=== PATIENT | female | born 1955 | race Caucasian/White ===

== ENCOUNTER 2017-12-18 13:09 | Emergency (ER) | payer OTHER | END 2017-12-18 15:37 | disposition home or self-care (01) | LOC: M ED 13:09 | DX: S30.0XXA Contusion of lower back and pelvis, initial encounter (principal); S50.01XA Contusion of right elbow, initial encounter; S40.011A Contusion of right shoulder, initial encounter; W00.0XXA Fall on same level due to ice and snow, initial encounter; Y92.511 Restaurant or cafe as the place of occurrence of the external cause; I10 Essential (primary) hypertension; J44.9 Chronic obstructive pulmonary disease, unspecified; E11.9 Type 2 diabetes mellitus without complications; R56.9 Unspecified convulsions; B19.20 Unspecified viral hepatitis C without hepatic coma; Z79.899 Other long term (current) drug therapy; Z79.82 Long term (current) use of aspirin; Z79.84 Long term (current) use of oral hypoglycemic drugs; Z88.0 Allergy status to penicillin; Z88.1 Allergy status to other antibiotic agents; Z88.2 Allergy status to sulfonamides; Z88.5 Allergy status to narcotic agent; Z91.040 Latex allergy status | CPT/HCPCS: 72110 ==

== ENCOUNTER → 2018-06-07 | Outpatient (CLI) | payer OTHER | LOC: M WHC 07:58 | DX: Z12.31 Encounter for screening mammogram for malignant neoplasm of breast (principal) | CPT/HCPCS: 77067 ==

== ENCOUNTER 2018-08-22 07:37 | Day surgery (SDC) | payer OTHER ==
[2018-08-22] MEDS: NS 1,000 ML IV ×2 (07:00→08:34)
[2018-08-22] MEDS ORDERED: PROPOFOL 200 MG/20 ML VIAL As Ordered ×3 (09:12→09:29)
[2018-08-22] MEDS ORDERED: LIDOCAINE 2% INJ 100 MG/5 ML SDV (FOR ANES.) As Ordered (09:12)
== END 2018-08-22 10:20 | disposition home or self-care (01) ==
LOC: M OPP 07:37
DX: Z12.11 Encounter for screening for malignant neoplasm of colon (principal); Z80.0 Family history of malignant neoplasm of digestive organs; Z86.010 Personal history of colon polyps; K62.1 Rectal polyp; D12.2 Benign neoplasm of ascending colon; K57.30 Diverticulosis of large intestine without perforation or abscess without bleeding; E78.5 Hyperlipidemia, unspecified; E11.9 Type 2 diabetes mellitus without complications; K59.00 Constipation, unspecified; K21.9 Gastro-esophageal reflux disease without esophagitis; R12 Heartburn; Z86.19 Personal history of other infectious and parasitic diseases; M19.90 Unspecified osteoarthritis, unspecified site; M54.5 Low back pain; F41.9 Anxiety disorder, unspecified; R51 Headache; R56.9 Unspecified convulsions; J45.909 Unspecified asthma, uncomplicated; J44.9 Chronic obstructive pulmonary disease, unspecified; Z91.030 Bee allergy status; Z88.5 Allergy status to narcotic agent; Z88.1 Allergy status to other antibiotic agents; Z91.040 Latex allergy status; Z88.0 Allergy status to penicillin; Z88.2 Allergy status to sulfonamides; Z79.82 Long term (current) use of aspirin; Z79.899 Other long term (current) drug therapy; Z79.84 Long term (current) use of oral hypoglycemic drugs; Z80.3 Family history of malignant neoplasm of breast
CPT/HCPCS: 45385

== ENCOUNTER → 2019-07-13 | Outpatient (CLI) | payer MEDICARE ==
[~2019-07-13] MED LIST: ALOG25TA PO; ASPI81TA83 OR; ASPI81TA85 PO; BUSP10TA2 OR; CRES10TA32 OR; DILA100C PO; GLIP10TA18 PO; GLUC1000 OR; INVO300T PO; KEPPRA PO; LIPI20TA PO; LORA-243 PO; METF10004 PO; NAPR-837 PO; NEXI1CAP3 OR; OMEP20CA4 PO; QVAR80AE10 IN; SING10TA31 OR; SYMB80AE INH; TOPI100T OR; TOPI50TA OR; TRAM50TA2 OR; ZOLO100T OR; ZOLO100T PO; ZOLOFT PO; [UNRECOGNIZED DRUG - CODE] PR
--- NOTE | 2019-07-13 15:31 | REPMRS ---
Patient History The patient states she has not had a clinical breast exam in over a year. Patient is postmenopausal. Family history of colorectal cancer at age 50 or over in paternal aunt, prostate cancer at age 50 or over in father. No Hormone Replacement Therapy Digital Woman Screen Mammo: July 13, 2019 - Exam #: [id number] Bilateral CC and MLO view(s) were taken. Technologist: Monse Balderas, Technologist Prior study comparison: June 07, 2018, bilateral digital woman screen mammo performed at [facility]. December 24, 2011, bilateral digital woman screen mammo performed at [facility]. November 19, 2010, bilateral screening mammogram performed at [facility]. FINDINGS: There are scattered fibroglandular densities. There has been no change in the appearance of the mammogram from the prior studies. There is a mild amount of scattered fibroglandular density which is fairly symmetric. There is no interval development of dominant mass, architectural distortion, or grouped microcalcification suggestive of malignancy. 3-D tomosynthesis shows no additional findings. Assessment: BI-RADS/ACR category 1 mammogram. Negative Mammogram. Recommendation Routine screening mammogram of both breasts in 1 year (for women over age 40). This patient's Lifetime Breast Cancer Risk is estimated at 5.9 %. This mammogram was interpreted with the aid of an FDA-approved computer-aided dectection system. Electronically Signed By: Scott Vargas MD 07/13/19 0452
== END ==
LOC: M WHC 12:23
PROVIDERS: ATTEND Family Medicine
DX: Z12.31 Encounter for screening mammogram for malignant neoplasm of breast (principal); Z78.0 Asymptomatic menopausal state; Z80.3 Family history of malignant neoplasm of breast

== ENCOUNTER → 2021-06-27 | Outpatient (CLI) | payer MEDICARE ==
[~2021-06-27] MED LIST changes: -ASPI81TA85 PO; +ASPI81TA86 PO; +OMEP1CAP73 PO; -OMEP20CA4 PO
--- NOTE | 2021-06-27 16:35 | DEXAMM ---
INDICATION: Z13.820 SCR FOR OSTEOPOROSIS. Status post lumbar spine fusion surgery. COMPARISON: Comparison study July 27, 2006.. TECHNIQUE: Bone density was measured using dual-energy x-ray absorptionmetry (DEXA). FINDINGS: LT FEMUR, TOTAL BMD 1.036 g/cm2 Young Adult T-Score 0.2 Age Matched Z-Score 21.6. LT NECK BMD 0.903 g/cm2 Young Adult T-Score -1.0 Age Matched Z-Score 0.6. RT FEMUR, TOTAL BMD 1.013 g/cm2 Young Adult T-Score is 0.0 Age Matched Z-Score 01.4. RT NECK BMD 0.809 g/cm2 Young Adult T-Score -1.6 Age Matched Z-Score 6-0.1. IMPRESSION: There is low bone density of the left hip. There is low bone density of the right hip. The density of the left hip has decreased 11.3% since initial exam on July 27, 2006. The density of the right hip has decreased 17.1% since the initial exam on July 27, 2006. FOLLOW-UP: Recommendation for the next bone density exam: 2 years. <Electronically signed by Scott Vargas > 06/27/21 [id number]
--- NOTE | 2021-06-27 16:45 | REPMRS ---
Patient History The patient states she has not had a clinical breast exam in over a year. Family history of colorectal cancer at age 50 or over in paternal aunt, prostate cancer at age 50 or over in father. No Hormone Replacement Therapy Patient states no breast complaints today. Patient has signed MRS History Sheet. Digital Woman Screen Mammo: June 27, 2021 - Exam #: [id number] Bilateral CC and MLO view(s) were taken. Technologist: Coco Hills, Technologist Prior study comparison: July 13, 2019, bilateral digital woman screen mammo performed at [facility]. June 07, 2018, bilateral digital woman screen mammo performed at [facility]. FINDINGS: There are scattered fibroglandular densities. Screening. Digital screening (2D) mammography was performed bilaterally in the CC and MLO projections. Additionally, breast tomosynthesis (3D mammography) was performed bilaterally in the CC and MLO projections. Todays exam was compared to the prior exam/exams. By history, the patient has no complaints of a palpable breast abnormality or other significant breast complaints. The breasts are unchanged in size and shape. There are no everett-soft tissue densities or spiculated masses. There is no internal architectural distortion. There are no suspicious everett-calcific clusters. Skin thickening or nipple retraction is not present. IMPRESSION: BI-RADS Category 2- Benign Findings. There is no evidence of malignant alteration of the breasts. Followup examination recommended in one year. The Volpara volumetric breast density category is B, there are scattered areas of fibroglandular densities. This mammogram was read with the assistance of [employer],an FDA approved computer aided detection system for mammography. The lifetime Tyrer-Cuzick score is 5.3 % Negative x-ray reports should not delay surgical consultation if a dominant or clinically suspicious mass is present. Not all breast cancers can be identified by mammography. Therefore, we recommend that you continue to perform regular breast self-examination and physical examination and then promptly contact your physician of any concerns or changes. Adenosis and dense breasts may obscure an underlying neoplasm. Assessment: BI-RADS/ACR category 2 mammogram. Benign Findings. Recommendation Routine screening mammogram of both breasts in 1 year. Electronically Signed By: Martín Sarmiento DO 06/27/21 [id number]
== END ==
LOC: M WHC 13:22
PROVIDERS: ATTEND Family Medicine
DX: Z12.31 Encounter for screening mammogram for malignant neoplasm of breast (principal); Z13.820 Encounter for screening for osteoporosis; R92.2 Inconclusive mammogram; M43.26 Fusion of spine, lumbar region; M85.88 Other specified disorders of bone density and structure, other site

== ENCOUNTER → 2022-01-02 | Outpatient (CLI) | payer MEDICARE ==
[~2022-01-02] MED LIST changes: +ATOR40TA75 PO; +ECOT81TA5 PO; +FAMO40TA3 PO; +OMEP-173 PO; +PIOG1TAB36 PO; +PROAAER10 INH; +TRUL0.5I SC
== END ==
LOC: M LABSMTC 08:54
PROVIDERS: ATTEND Anesthesiology
DX: Z01.812 Encounter for preprocedural laboratory examination (principal); Z20.822 Contact with and (suspected) exposure to COVID-19

== ENCOUNTER 2022-01-07 07:12 | Day surgery (SDC) | payer MEDICARE ==
[~2022-01-07] VITALS: Ht 157.5 cm; Wt 84.8 kg
[~2022-01-07 07:12] MED LIST changes: +NS 1,000 ML IV ONE
[2022-01-07] MEDS ORDERED: LIDOCAINE 2% 100MG/5ML SDV (FOR ANES.) As Ordered ONE (07:27)
[2022-01-07] MEDS ORDERED: propofoL 200 MG/20 ML VIAL As Ordered ONE (07:27)
[2022-01-07] MEDS ORDERED: OMEG10002 PO (08:01)
[2022-01-07] MEDS ORDERED: ONE-1TAB PO (08:02)
[2022-01-07 09:45] VITALS: BP 180/82
== END 2022-01-07 09:55 | disposition home or self-care (01) ==
LOC: M OPP 07:12
PROVIDERS: ATTEND Internal Medicine Gastroenterology
DX: Z12.11 Encounter for screening for malignant neoplasm of colon (principal); Z86.010 Personal history of colon polyps; Z80.0 Family history of malignant neoplasm of digestive organs; K57.30 Diverticulosis of large intestine without perforation or abscess without bleeding; K64.0 First degree hemorrhoids; Z79.82 Long term (current) use of aspirin; Z79.84 Long term (current) use of oral hypoglycemic drugs; Z79.899 Other long term (current) drug therapy; Z88.0 Allergy status to penicillin; Z88.1 Allergy status to other antibiotic agents; Z88.2 Allergy status to sulfonamides; Z88.5 Allergy status to narcotic agent; Z91.018 Allergy to other foods; Z91.030 Bee allergy status; Z91.040 Latex allergy status

== ENCOUNTER 2022-06-10 13:29 | Emergency (ER) | payer MEDICARE ==
[~2022-06-10] VITALS: Ht 157.5 cm; Wt 82.5 kg
[~2022-06-10 13:29] MED LIST changes: -NS 1,000 ML IV ONE; +OMEG10002 PO; +ONE-1TAB PO
[2022-06-10 15:20] VITALS: BP 157/88
== END 2022-06-10 15:39 | disposition home or self-care (01) ==
LOC: M ED 13:29
DX: S40.022A Contusion of left upper arm, initial encounter (principal); W19.XXXA Unspecified fall, initial encounter; Y92.099 Unspecified place in other non-institutional residence as the place of occurrence of the external cause; E78.5 Hyperlipidemia, unspecified; K21.9 Gastro-esophageal reflux disease without esophagitis; J44.9 Chronic obstructive pulmonary disease, unspecified; Z86.19 Personal history of other infectious and parasitic diseases; H40.9 Unspecified glaucoma; E11.9 Type 2 diabetes mellitus without complications; Z79.4 Long term (current) use of insulin; Z79.84 Long term (current) use of oral hypoglycemic drugs; Z79.82 Long term (current) use of aspirin; Z79.899 Other long term (current) drug therapy; Z88.0 Allergy status to penicillin; Z88.2 Allergy status to sulfonamides; Z88.5 Allergy status to narcotic agent; Z88.1 Allergy status to other antibiotic agents; Z91.010 Allergy to peanuts; Z91.018 Allergy to other foods; Z91.013 Allergy to seafood; Z91.040 Latex allergy status